=== PATIENT | female | born 1965 | race Caucasian/White ===

== ENCOUNTER → 2016-08-28 | Outpatient (CLI) | payer OTHER ==
[2016-08-28 09:14] LABS: BLOOD UREA NITROGEN 20 mg/dL (7-22); CALCIUM 9.3 mg/dL (8.7-10.7); CHOL/HDL RATIO 2.16 RATIO (0-4.0); EST GLOMERULAR FILTRATION > 60 (>60 ml/min/1.73m(2)); HDL CHOLESTEROL 95 mg/dL (40-150); SERUM ALBUMIN 3.8 g/dL (3.5-4.8); SERUM CHOLESTEROL 206 mg/dL (120-200)
== END ==
LOC: LAB 07:17
PROVIDERS: ATTEND Nurse Practitioner Family
DX: E03.9 Hypothyroidism, unspecified (principal)
CPT/HCPCS: 36415; 80053; 80061; 84443

== ENCOUNTER → 2016-12-18 | Outpatient (CLI) | payer OTHER | LOC: LAB 16:29 | PROVIDERS: ATTEND Neurological Surgery | DX: Z01.812 Encounter for preprocedural laboratory examination (principal); G57.01 Lesion of sciatic nerve, right lower limb | CPT/HCPCS: 36415; 82565; 84520 ==

== ENCOUNTER → 2016-12-19 | Outpatient (CLI) | payer OTHER ==
--- NOTE | 2016-12-20 09:37 | DI ---
MRI PELVIS SCAN WITHOUT AND WITH IV CONTRAST, 12/19/2016 7:22 AM: Clinical History: Mononeuropathy of the right sciatic nerve. Previous Exam: None at this facility. Technique: Axial and coronal T1 weighted and T2 weighted fat saturated scans. Postcontrast axial and coronal T1-weighted scans. The scans include of the pelvis and the proximal thighs. The patient is status post hysterectomy and bilateral salpingo-oophorectomy. No pelvic mass or pelvic adenopathy is present. The piriformis muscles bilaterally are normal. The lumbosacral plexus is inta ct and no abnormal focus of enhancement is noted. The sciatic nerves are followed through the pelvis and into the distal third of the thighs and are symmetric bilaterally and show no focal areas of enha ncement. Readin. No pelvic mass is identified. 2. The lumbosacral plexus and both sciatic nerves are symmetric in appearance and show no abnormal e nhancement.
== END ==
LOC: MRI 07:16
PROVIDERS: ATTEND Physician Assistant
DX: G57.01 Lesion of sciatic nerve, right lower limb (principal)
CPT/HCPCS: 72197

== ENCOUNTER 2016-12-25 07:05 | Day surgery (SDC) | payer OTHER ==
[~2016-12-25 07:05] MED LIST: BUPivacaine Inj 0.25% PF - 10ml vial IV ONE; Iopamidol Inj 61% 50 ML VIAL INTRATHEC ONE; TRIAMCINOLONE ACETONIDE 40 MG/1 ML IAC ONE
--- NOTE | 2016-12-25 08:13 | PDOC(PROG) ---
General Note Progress Note: Patient placed in prone position. Back prepped and draped. 22 g spinal needle placed in right piriformis muscle. 1cc omnipaque confirmed position then 1cc kenalog 40 mg and 3 cc .25% bupivicaine injected
[2016-12-25 08:41] VITALS: RESP 12
[2016-12-25 08:42] VITALS: TEMP 97.1
== END 2016-12-25 08:18 | disposition home or self-care (01) ==
LOC: SDSC 07:05
PROVIDERS: ATTEND Pain Medicine Interventional Pain Medicine
DX: G58.8 Other specified mononeuropathies (principal)
CPT/HCPCS: 20552; 76000; J3301; S0020